=== PATIENT | female | born 1965 | race Caucasian/White ===

== ENCOUNTER 2018-02-27 07:06 | Inpatient (IN) ==
[2018-02-27] MEDS ORDERED: Chlorhexidine Gluconate 2% 1 Pack (2 Cloths) TOPICAL ONE (07:23)
[2018-02-27] MEDS ORDERED: Metoprolol Tartrate 25 MG Tablet PO ONE (07:23)
[2018-02-27] MEDS ORDERED: Chlorhexidine 4% Topical 120 APPLIC/120 ML Bottle TOPICAL SCH (07:30)
[2018-02-27] MEDS ORDERED: Vancomycin Inj 1,000 MG in Sodium Chlor 0.9% Inj 250 ML IV.SIG SCH (08:00)
[2018-02-27] MEDS ORDERED: Sodium Chlor 0.9% Inj 500 ML IV.SIG SCH (08:00)
[2018-02-27] MEDS ORDERED: ceFAZolin 2 GM Premix Inj 2 GM/50 ML PIGGYBACK IV.SIG SCH (08:00)
--- NOTE | 2018-02-27 12:20 | P.OP ---
- Preoperative Diagnosis (1) Osteoarthritis of right hip - Postoperative Diagnosis (1) Osteoarthritis of right hip Date of procedure: 02/27/18 Procedure: Right total hip arthroplasty, posterior exposure Anesthesia: GETA Surgeon: Min Andrade MD Director Facilities Maintenance: Vadim Andrade MD Operation and Findings: EBL: 250 cc INDICATION: This patient is a 52-year-old female with severe right hip pain related to degenerative changes and osteoarthritis. She has mild acetabular dysplasia. She has significant femoral anteversion. She presents for surgical treatment. NOTE: Vadim Andrade was present for the entire surgical procedure as my heel sprayer first. In my medical opinion his skill and care was necessary for the proper management of this patient. COMPONENTS: COMPANY: [employer] CUP: Climax, 52 mm, 100 series STEM: Size 4, standard offset, [place] pressfit HEAD: Ceramic, 32 mm, S1 12/14 taper LINER: Altrex 32, neutral PROCEDURE: This patient was brought to the operating room and anesthetized in the supine position and positioned on the routine table in the clean air suite. The patient was then rolled to a right side up lateral position and held with a Zivity hip positioner. The hip and leg was scrubbed with alcohol followed by Hibiclens followed by chloro prep and draped sterilely. A timeout was done and antibiotics were given within a routine time window. A 4 inch incision was made starting along the posterior one third of the greater trochanter. The iliotibial band was opened in line with the incision. The Charnley retractors were positioned. The posterior capsule and external rotators were taken down together in a sleeve. The sciatic nerve was palpated to be deep to the dissection. During the case was no evidence of compression or traction upon the sciatic nerve. The neck was cut at the right location. The head was removed from the wound. Because of the significant valgus deformity of the hip on x-rays, the femoral anteversion was measured at that point. The femoral anteversion was approximately 35-40 degrees. Because of that, we anticipated placing the cup in slightly less anteversion to accommodate the patient's anatomic variation. The acetabulum was inspected. Deep retractors were positioned. The acetabulum was deepened down to the floor and started with a proper size reamer and reaming up to 51 mm. This was trialed with the same size trial. The overall fit was satisfactory. The rim was touched with the next size reamer. The cup was placed in approximately 40 of abduction and 20 of forward flexion. The final liner was positioned. Retractors were positioned allowing good visualization of the proximal femur. A box osteotome was utilized followed by a taper pin reamer followed by progressive broaching for the [place] stem. This was reamed and broached and eventually advanced to a size 4 stem. A trial reduction showed satisfactory stability. Offset was satisfactory. Leg length was reestablished. At 90 of flexion it was stable to 50 of internal rotation. The hip could not be subluxed anteriorly. The final stem was inserted in approximately 15 of anteversion. The final head was impacted. The hip was reduced and stability, offset and leg length was as previously noted. The posterior capsule and external rotators were repaired through bone with interrupted #2 Tycron sutures. The piriformis muscle was repaired with the same. The iliotibial band with interrupted #1 Vicryl sutures. Subcutaneous tissue was approximated with 2-0 Vicryl suture and skin with running intradermal 3-0 Vicryl followed by Steri-Strips and benzoin. A sterile dressing was applied.. The sponge count needle counts and instrument counts were all correct. The patient was awakened and taken to the recovery room in satisfactory condition FINDINGS: There was evidence of severe osteoarthritis of the right hip. The final solution was excellent. Stability was excellent. We lengthen the leg by approximately 5-6 mm
[2018-02-27] MEDS ORDERED: Bisacodyl 10 MG Supp RECTAL PRN (12:36)
--- NOTE | 2018-02-27 12:45 | P.DCO ---
- Physical Therapy Physical Therapy: Gait training, Safety evaluation, Transfer training, bed to chair Hip: Total hip, Protocol: Right, Posterior hip precautions, Progress to weight bearing Canvas Knee Splint: Other (when sleeping at night ) Right Lower Extremity Weight Bearing: Weight bearing as tolerated Left Lower Extremity Weight Bearing: Weight bearing as tolerated - Nursing RN: 3 days/week x 2 weeks Dressing changes: Do not change dressing Additional instructions: aspirin 81 mg bid x 4 weeks dvt prop - Certification Need for Home Health services: I have seen patient Carol Nj on 02/27/18. My clinical findings support the need for the requested home health care services because: Need for Home Health Services: High risk of falls Homebound Certification: I certify that my clinical findings support that this patient is homebound because: Homebound Certification: Post-op weakness
[2018-02-27] MEDS ORDERED: Post-op Orders (for Pharmacy) OTHER STA (12:49)
[2018-02-27] MEDS ORDERED: fentaNYL Citrate Inj 100 MCG/2 ML Ampul ONE (12:54)
[2018-02-27] MEDS ORDERED: Morphine Inj 4 MG/ML Vial ONE (12:54)
[2018-02-27] MEDS ORDERED: fentaNYL Citrate Inj 100 MCG/2 ML Ampul IV.PUSH ONE (13:00)
[2018-02-27] MEDS ORDERED: Morphine Sulfate Inj 2 MG/ML Vial IV.PUSH PRN (13:00)
[2018-02-27] MEDS ORDERED: *Meperidine Inj 25 MG/ML Vial PERIprocedural Use ONLY ONE (13:22)
[2018-02-27] MEDS ORDERED: *morphine SULFATE 4 MG/ML PERIprocedure ONLY ONE (13:51)
--- NOTE | 2018-02-27 15:41 | XR ---
EXAM DATE: 02/27/2018 3:38 PM EST AGE/SEX: 52 years / Female INDICATIONS: Post-op right total hip. CLINICAL DATA: This is the patient's initial encounter. Patient reports that signs and symptoms have been present for 1 day and indicates a pain score of 7/10. MEDICAL/SURGICAL HISTORY: None. None. COMPARISON: [facility], HIP RIGHT AP ONLY 1V, 12/30/2017. . FINDINGS: Right total hip arthroplasty is present. Hardware is intact. Alignment is anatomic. The bony pelvis i s unremarkable. CONCLUSION: Satisfactory appearance post right CECILE Electronically signed by: Burton Argueta MD Board Certified Radiologist 02/27/2018 3:40 PM EST
[2018-02-27] MEDS: ceFAZolin 1 GM Premix Inj 1 GM/50 ML PIGGYBACK IV.SIG SCH ×2 (16:24→21:59)
[2018-02-27] MEDS: Senna/Docusate Sodium 8.6/50 MG Tablet PO SCH (20:44)
[2018-02-27] MEDS ORDERED: Zolpidem Tartrate 5 MG Tablet PO PRN (21:00)
[2018-02-28] MEDS: ceFAZolin 1 GM Premix Inj 1 GM/50 ML PIGGYBACK IV.SIG SCH (04:16)
[2018-02-28 06:07] LABS: Hematocrit 30.1 % (35.0-46.0); Hemoglobin 10.8 gm/dL (11.6-15.3)
--- NOTE | 2018-02-28 06:56 | P.PNOP ---
Subjective Interval history: pt has post operative right hip soreness no other complaints Physical Exam Vital signs: Vital Signs 02/27/18 07:51 02/27/18 12:45 02/27/18 13:00 Temperature 99.0 F 97.4 F L Pulse Rate 67 85 67 Respiratory Rate 16 20 16 Blood Pressure 143/85 H 154/83 H 130/67 Pulse Oximetry 97 99 98 02/27/18 13:15 02/27/18 13:30 02/27/18 13:45 Temperature Pulse Rate 82 70 67 Respiratory Rate 16 16 15 Blood Pressure 139/68 120/63 120/69 Pulse Oximetry 98 98 98 02/27/18 14:00 02/27/18 14:15 02/27/18 14:30 Temperature Pulse Rate 76 78 80 Respiratory Rate 15 15 16 Blood Pressure 111/70 115/70 118/68 Pulse Oximetry 98 97 98 02/27/18 14:45 02/27/18 16:00 02/27/18 19:43 Temperature 97.6 F 98.3 F Pulse Rate 85 108 H Respiratory Rate 16 18 18 Blood Pressure 112/68 108/76 Pulse Oximetry 97 97 02/27/18 19:59 02/27/18 22:30 02/28/18 00:00 Temperature 98.3 F 98.2 F Pulse Rate 79 77 Respiratory Rate 18 18 18 Blood Pressure 119/60 111/64 Pulse Oximetry 97 93 L 02/28/18 03:30 02/28/18 04:46 Temperature 98.8 F Pulse Rate 91 H Respiratory Rate 18 18 Blood Pressure 113/61 Pulse Oximetry 96 Intake & Output 02/27/18 02/27/18 02/28/18 06:59 18:59 06:59 Intake Total 50 / 50 1100 / 1100 Balance 50 / 50 1100 / 1100 Weight 85.8 kg 78.4 kg Intake: IV 50 / 50 1100 / 1100 LR 1000 mL Inj 1,000 ML @ 80 1000 / 1000 mls/hr IV.CONT .[id number] ERMELINDA Rx# :[id number] Ancef 1 GM Premix Inj 1 gm In 50 / 50 100 / 100 50 ml @ 200 mls/hr IV.SIG Q6H ERMELINDA Rx#:[id number] Oral 0 / 0 Other: # Voids 1 0 Date of Last Bowel Movement 02/27/18 02/27/18 # Bowel Movements 0 Weight On Admission 85.8 kg Narrative: also seen and examined by Dr. Vadim Andrade right posterior lateral hip incision, dressing dry and intact canvas knee splint in place no calf tenderness Results - Labs CBC & Chem 7: 02/28/18 04:09 Laboratory Results - last 24 hr 02/27/18 02/28/18 07:40 04:09 Hgb 10.8 L Hct 30.1 L Blood Type B Positive Blood Type Recheck Required Antibody Screen Negative - Imaging Impressions Hip X-Ray 02/27/18 12:24 CONCLUSION: Satisfactory appearance post right CECILE Assessment and Plan - Problem List (1) Osteoarthritis of right hip Code(s): M16.11 - Unilateral primary osteoarthritis, right hip Status: Acute - Assessment and Plan POD # 1 s/p R CECILE- posterior approach change dressing today and apply optifoam no change dressing PT-WBAT baby aspirin 81 mg bid x 4 weeks dvt prop norco 7.5 mg being e-scribed to pharmacy, eforce checked discharge home today with [facility], orthopedically stable
[2018-02-28 07:17] VITALS: BP 108/57; PULSE 83; RESP 17; TEMP 98.5; O2SAT 95
[2018-02-28] MEDS: Senna/Docusate Sodium 8.6/50 MG Tablet PO SCH (08:27)
[2018-02-28] MEDS ORDERED: Pantoprazole Sodium 20 MG DR Tablet PO SCH (09:00)
== END 2018-02-28 13:30 | disposition home health service (06) ==
LOC: HSDC 07:06 → EDSTATUS 09:30 → HSDI 12:45 → N06 15:00
PROVIDERS: ADMIT Orthopaedic Surgery Orthopaedic Surgery of the Spine; ATTEND Orthopaedic Surgery Orthopaedic Surgery of the Spine